=== PATIENT | female | born 1970 | race Caucasian/White ===

== ENCOUNTER 2016-09-28 12:19 | Outpatient (CLI) | payer OTHER ==
--- NOTE | 2016-09-28 14:39 | Diagnostic Imaging Report ---
[facility] [id number] [facility].[address] [id number] Report Submission Date: Sep 28, 2016 1:25:09 PM BACTERIOLOGIST SOIL Patient Study Name: ZEESHAN COY Date: Sep 28, 2016 12:27:41 PM BACTERIOLOGIST SOIL Modality Type: CR Gender: F Description: UPPER EXTREMITY : 72 Institution: [facility] Physician NIKKI JEFFERS - ER EXAMINATION: Right humerus, two views. HISTORY: Mid humerus pain after fall. FINDINGS: The osseous structures are intact without fracture. The humeral head is well- seated in the glenoid fossa. The elbow joint is normal. No soft tissue abnormality is present. IMPRESSION: No osseous abnormality. Electronically signed on Sep 28, 2016 1:25:09 PM BACTERIOLOGIST SOIL by: Bronson GODINEZ
== END 2016-09-28 12:20 ==
LOC: RAD 12:19
PROVIDERS: ATTEND Family Medicine
DX: S49.91XA Unspecified injury of right shoulder and upper arm, initial encounter (principal)
CPT/HCPCS: 73060

== ENCOUNTER 2018-10-18 09:58 | Outpatient (CLI) | payer BC | END 2018-10-18 10:05 | LOC: LAB 09:58 | PROVIDERS: ATTEND Nurse Practitioner Family | DX: R53.83 Other fatigue (principal); Z00.00 Encounter for general adult medical examination without abnormal findings; E66.9 Obesity, unspecified; Z68.35 Body mass index [BMI] 35.0-35.9, adult | CPT/HCPCS: 36415; 80061; 82530; 82607; 82652; 83036; 83525; 83527; 84270; 84402; 84403; 84439; 84443; 84481 ==

== ENCOUNTER 2018-11-25 09:27 | Outpatient (CLI) | payer BC ==
--- NOTE | 2018-11-25 12:21 | Diagnostic Imaging Report ---
FREDERIC VILLAFANA [facility] [id number] [facility].[address] [id number] Report Submission Date: Nov 25, 2018 10:30:28 AM CDT Patient Study Name: ZEESHAN MCCOY Date: Nov 25, 2018 9:34:58 AM CDT Modality Type: DX Gender: F Description: KNEE 3 VIEWS : 72 Institution: [facility] Physician: FREDERIC VILLAFANA Examination: Plain film left knee History: Pain Findings: 3 views of the left knee demonstrates mild articular spurring. No fracture. No dislocation. No joint effusion. No soft tissue irregularity. Impression: Mild degenerative changes. No acute appearing osseous abnormality Electronically signed on Nov 25, 2018 10:30:28 AM CDT by: Eris GODINEZ
== END 2018-11-25 09:30 ==
LOC: RAD 09:27
PROVIDERS: ATTEND Nurse Practitioner Family
DX: M23.8X2 Other internal derangements of left knee (principal); M25.562 Pain in left knee
CPT/HCPCS: 73562

== ENCOUNTER 2019-06-30 06:52 | Outpatient (CLI) | payer BC ==
[~2019-06-30 06:52] MED LIST: methylPREDNISolone SOD SUCC 125 MG/2 ML VIAL ONE
== END 2019-06-30 07:03 ==
LOC: OUT 06:52
PROVIDERS: ATTEND Nurse Practitioner Family
DX: M13.162 Monoarthritis, not elsewhere classified, left knee (principal)